=== PATIENT | male | born 1950 | race Caucasian/White ===

== ENCOUNTER 2023-03-12 06:38 | Outpatient (RCR) | payer MEDICARE, OTHER, SELFPAY | END 2023-03-12 23:59 | disposition home or self-care (01) | LOC: RPT 06:38 | PROVIDERS: ATTENDING PHYSICIAN Physician Assistant Medical | DX: I89.0 Lymphedema, not elsewhere classified (principal); Z73.6 Limitation of activities due to disability | CPT/HCPCS: 97163; 97535 ==